=== PATIENT | male | born 1975 | race Caucasian/White ===

== ENCOUNTER 2019-08-26 18:34 | Emergency (ER) | payer SELFPAY ==
[2019-08-26] MEDS ORDERED: Proparacaine 0.5% Opth 15 ML BOT ONE ×2 (18:55→18:57)
[2019-08-26] MEDS ORDERED: Fluorescein Opthalmic Strip ONE ×2 (18:55→19:38)
== END 2019-08-26 19:48 | disposition home or self-care (01) ==
LOC: ERS 18:34
DX: H10.9 Unspecified conjunctivitis (principal); F17.210 Nicotine dependence, cigarettes, uncomplicated
CPT/HCPCS: 99283

== ENCOUNTER 2019-08-27 17:38 | Emergency (ER) | payer SELFPAY ==
[2019-08-27] MEDS ORDERED: Proparacaine 0.5% Opth 15 ML BOT ONE (18:55)
[2019-08-27] MEDS ORDERED: Ketorolac Tromethamine 30 MG/ML VIAL ONE (19:06)
== END 2019-08-27 19:36 | disposition home or self-care (01) ==
LOC: ERS 17:38
DX: H10.9 Unspecified conjunctivitis (principal); F17.210 Nicotine dependence, cigarettes, uncomplicated
CPT/HCPCS: 96372; 99283; J1885